=== PATIENT | female | born 1965 | race Caucasian/White ===

== ENCOUNTER 2016-10-27 11:48 | Emergency (ER) | payer BC ==
[2013-08-08 14:47] VITALS: BMI 24.5
[~2016-10-27 11:48] MED LIST: ASPIRIN325 MG PO; FLEXERIL10 MG PO; KEPPRA XR750 MG PO; LYRICA300 MG PO; MOBIC7.5 MG PO; PLAVIX75 MG PO; PRILOSEC20 MG PO; SKELAXIN800 MG PO; ZANTAC300 MG PO
[2016-10-27 12:25] LABS: BASOPHILS 1.1 % (0.0-2.0); EOSINOPHILS 2.8 % (0-7); HEMATOCRIT 45.8 % (36.0-48.0); HEMOGLOBIN 15.7 g/dL (12-16); IMMATURE GRANULOCYTES 0.2 % (0-5); LYMPHOCYTES 23.6 % (15-50); MCH 32.5 pg (26.0-34.0); MCHC 34.3 g/dL (31.0-37.0); MCV 94.8 fL (80.0-100.0); MONOCYTES 6.2 % (2-11); NEUTROPHILS 66.1 % (40-80); RBC 4.83 10x6/uL (4.00-5.40); RDW 13.6 % (11.5-14.5); WBC 5.4 10x3/uL (4.8-10.8)
[2016-10-27 12:27] LABS: PLATELET COUNT 102 10x3/uL (130-400)
[2016-10-27 12:43] LABS: UDS - AMPHET NEGATIVE QUAL (NEGATIVE); UDS - BARB NEGATIVE QUAL (NEGATIVE); UDS - BENZO NEGATIVE QUAL (NEGATIVE); UDS - COCAINE NEGATIVE QUAL (NEGATIVE); UDS - METH NEGATIVE QUAL (NEGATIVE); UDS - OPIATE NEGATIVE QUAL (NEGATIVE); UDS - PCP NEGATIVE QUAL (NEGATIVE); UDS - THC NEGATIVE QUAL (NEGATIVE)
[2016-10-27 12:55] LABS: APPEARANCE CLEAR (CLEAR); COLOR STRAW (YELLOW)
[2016-10-27 12:56] LABS: BILIRUBIN NEGATIVE (NEGATIVE); GLUCOSE NEGATIVE (NEGATIVE); KETONE NEGATIVE (NEGATIVE); LEUKOCYTE ESTERASE NEGATIVE (NEGATIVE); NITRITE NEGATIVE (NEGATIVE); PROTEIN NEGATIVE (NEGATIVE); SPECIFIC GRAVITY 1.005 (1.005-1.020); UROBILINOGEN NORMAL (NORMAL)
[2016-10-27 13:00] LABS: ALBUMIN 3.5 g/dL (3.4-5.0); ALKALINE PHOSPHATASE 53 U/L (46-116); ALT (SGPT) 16 U/L (10-68); BILIRUBIN - TOTAL 0.26 mg/dL (0.2-1.3); CALC OSMOLALITY 279 mosm/kg (275-300); CALCIUM 8.8 mg/dL (8.5-10.1); CARBON DIOXIDE 27.4 mmol/L (21.0-32.0); CHLORIDE - SERUM 106 mmol/L (98-107); CREATININE - SERUM 0.7 mg/dL (0.6-1.3); GLUCOSE 107 mg/dL (74-106); POTASSIUM - SERUM 3.7 mmol/L (3.5-5.1); PROTEIN - SERUM 6.8 g/dL (6.4-8.2); SODIUM 141 mmol/L (136-145); UREA NITROGEN 10 mg/dL (7-18); eGFR NON AFRICAN AMERICAN > 90 mL/min (90-120)
== END 2016-10-27 15:24 | disposition home or self-care (01) ==
LOC: D.ER 11:48
PROVIDERS: Emergency Medicine
DX: G40.909 Epilepsy, unspecified, not intractable, without status epilepticus (principal); D69.6 Thrombocytopenia, unspecified; Z86.73 Personal history of transient ischemic attack (TIA), and cerebral infarction without residual deficits; M19.90 Unspecified osteoarthritis, unspecified site; M79.7 Fibromyalgia; F17.200 Nicotine dependence, unspecified, uncomplicated; R00.1 Bradycardia, unspecified

== ENCOUNTER → 2017-05-10 16:45 | Outpatient (CLI) | payer BC ==
[2013-08-08 14:47] VITALS: BMI 24.5
== END | disposition home or self-care (01) ==
LOC: D.MAMMO 10:15
DX: Z12.31 Encounter for screening mammogram for malignant neoplasm of breast (principal)

== ENCOUNTER → 2018-07-24 18:50 | Outpatient (CLI) | payer MEDICARE ==
[2013-08-08 14:47] VITALS: BMI 24.5
== END | disposition home or self-care (01) ==
LOC: D.MAMMO 09:30
DX: Z12.31 Encounter for screening mammogram for malignant neoplasm of breast (principal)

== ENCOUNTER → 2018-08-10 20:45 | Outpatient (CLI) | payer MEDICARE ==
[2013-08-08 14:47] VITALS: BMI 24.5
== END | disposition home or self-care (01) ==
LOC: D.MAMMO 09:00
DX: R92.8 Other abnormal and inconclusive findings on diagnostic imaging of breast (principal)

== ENCOUNTER 2019-01-24 19:00 | Outpatient (CLI) | payer MEDICARE ==
[2013-08-08 14:47] VITALS: BMI 24.5
== END 2019-01-24 23:59 | disposition home or self-care (01) ==
LOC: D.MAMMO 19:00
PROVIDERS: ATTEND Family Medicine
DX: R92.8 Other abnormal and inconclusive findings on diagnostic imaging of breast (principal)

== ENCOUNTER 2019-08-06 08:00 | Outpatient (CLI) | payer MEDICARE ==
[2013-08-08 14:47] VITALS: BMI 24.5
== END 2019-08-06 23:59 | disposition home or self-care (01) ==
LOC: D.MAMMO 08:00
PROVIDERS: ATTEND Family Medicine
DX: R92.8 Other abnormal and inconclusive findings on diagnostic imaging of breast (principal)

== ENCOUNTER → 2021-03-12 11:04 | Outpatient (CLI) | payer OTHER ==
[2013-08-08 14:47] VITALS: BMI 24.5
== END | disposition home or self-care (01) ==
LOC: D.RAD 11:04
PROVIDERS: ATTEND Pediatrics
DX: Z02.71 Encounter for disability determination (principal)